=== PATIENT | female | born 1990 | race Caucasian/White ===

== ENCOUNTER 2020-09-30 20:25 | Inpatient (IN) | payer BC ==
[2020-09-30] MEDS: DEXTROSE 5%-LACTATED RINGERS 1,000 ML IV SCH (21:30)
[2020-09-30 22:13] LABS: BASO % 0.5 % (0-2.0); EOS % 1.1 % (0-4.5); HEMATOCRIT 37.7 % (32.4-45.2); LYMPH % 16.9 % (8-40); MCH 29.6 pg (25.7-33.7); MCHC 34.6 g/dl (32.0-36.0); MEAN CELL VOLUME 85.5 fl (80-96); MEAN PLT VOLUME 10.3 fl (7.5-11.1); MONO % 8.5 % (3.8-10.2); PLATELET COUNT 185 K/MM3 (134-434); RBC 4.41 M/mm3 (3.60-5.2); RDW 13.5 % (11.6-15.6)
[2020-09-30 22:23] LABS: INR 0.93 (0.83-1.09); PROTHROMBIN TIME (PATIENT) 11.5 SEC (9.7-13.0)
[2020-09-30 22:26] LABS: ACTIVATED PTT 26.8 SECONDS (25.2-36.5)
[2020-09-30] MEDS ORDERED: BUTORPHANOL TARTRATE 1 MG/ML VIAL IVPUSH PRN (22:27)
[2020-09-30] MEDS ORDERED: PROMETHAZINE HCL 25 MG/1 ML VIAL IVPUSH ONE (22:27)
[2020-09-30 22:37] LABS: PLATELET ESTIMATE ADEQUATE
[2020-09-30 22:41] LABS: POTASSIUM 3.8 mmol/L (3.5-5.1)
[2020-09-30 22:42] LABS: CALCIUM 9.2 mg/dL (8.5-10.1)
[2020-09-30 22:44] LABS: BLOOD UREA NITROGEN 15.4 mg/dL (7-18)
[2020-09-30 22:47] LABS: CREATININE 0.7 mg/dL (0.55-1.3)
[2020-09-30 22:55] VITALS: BMI 26.2
[2020-10-01] MEDS ORDERED: PROMETHAZINE HCL 25 MG/1 ML VIAL ONE (02:53)
[2020-10-01] MEDS ORDERED: BUTORPHANOL TARTRATE 2 MG/ML VIAL ONE (02:53)
[2020-10-01] MEDS ORDERED: FENTANYL/BUPIVACAINE/NS/PF - PCEA - 50 ML DISP.SYRIN EP ONE ×2 (04:58→09:32)
[2020-10-01] MEDS ORDERED: PCA PUMP NR ONE ×3 (04:58→14:32)
[2020-10-01] MEDS ORDERED: BUPIVACAINE HCL/PF 0.25% (2.5MG/ML) 10 ML VIAL ONE (05:06)
[2020-10-01] MEDS: FENTANYL/BUPIVACAINE/NS/PF - PCEA - 50 ML DISP.SYRIN EP SCH (05:25)
[2020-10-01] MEDS ORDERED: NALOXONE HCL 0.4 MG/ML VIAL IVPUSH PRN (05:30)
[2020-10-01] MEDS: DEXTROSE 5%-LACTATED RINGERS 1,000 ML IV SCH (05:52)
[2020-10-01] MEDS ORDERED: OXYTOCIN 30 UNITS in 0.9% NS 30 UNIT/500 ML INFUS.BAG IVPB SCH (08:15)
[2020-10-01] MEDS ORDERED: AMPICILLIN SODIUM 2 GM VIAL ONE (11:38)
[2020-10-01] MEDS ORDERED: OXYTOCIN 20 UNITS in 0.9% NS 20 UNIT/1,000 ML INFUS.BAG IV ONE ×2 (11:39→15:49)
[2020-10-01] MEDS ORDERED: LIDOCAINE HCL 1% PRESERVATIVE FREE - 30ML VIAL ONE (11:39)
[2020-10-01] MEDS ORDERED: AMPICILLIN - 2 GM in SODIUM CHLORIDE 100 ML IVPB ONE (11:43)
[2020-10-01] MEDS ORDERED: ELECTROLYTE-148 SOLN 1,000 ML IV SCH (11:45)
[2020-10-01] MEDS ORDERED: CITRIC ACID/SODIUM CITRATE 30 ML UNIT-DOSE CUP PO ONE (14:14)
[2020-10-01] MEDS ORDERED: LIDO 2%/EPI 1:200000 PRESRVFRE (20 ML SDVIAL) ONE (14:20)
[2020-10-01] MEDS ORDERED: morphine SULFATE/PF 0.5 MG/ML (2cc Syringe - QUVA) ONE ×2 (15:07)
[2020-10-01 15:39] LABS: CORD BASE EXCESS -4.1 mmol/L (0-2); CORD HCO3 22.6 mmHg (20-29); CORD PCO2 47.6 mmHg (30-78); CORD pH 7.295 (7.14-7.44)
[2020-10-01 15:43] LABS: CORD BASE EXCESS -1.9 mmol/L (0-2); CORD HCO3 24.8 mmHg (20-29); CORD PCO2 49.1 mmHg (30-78); CORD pH 7.321 (7.14-7.44)
[2020-10-01] MEDS ORDERED: BENZOCAINE 28 GM HEMORRHOIDAL OINTMENT PR PRN (15:52)
[2020-10-01] MEDS ORDERED: BENZOCAINE 20% 57 GM BOTTLE TP PRN (15:52)
[2020-10-01] MEDS ORDERED: oxyCODONE HCL 5 MG TABLET PO PRN ×2 (15:52)
[2020-10-01] MEDS ORDERED: METHYLERGONOVINE MALEATE 0.2 MG/1 ML AMP IM PRN (15:52)
[2020-10-01] MEDS ORDERED: diphenhydrAMINE HCL 25 MG CAPSULE (FP) PO PRN (15:52)
[2020-10-01] MEDS ORDERED: WITCH HAZEL 50% (TUCKS) 40 PAD/JAR PAD TP PRN (15:52)
[2020-10-01] MEDS ORDERED: OXYTOCIN 20 UNITS in 0.9% NS 20 UNIT/1,000 ML INFUS.BAG IV SCH (16:00)
[2020-10-01] MEDS: IBUPROFEN 800 MG/8 ML IJ IVPB PRN (17:26)
[2020-10-01] MEDS: CEFAZOLIN 1 GM/D5W 1 GM/50 ML BAG IVPB SCH (18:35)
[2020-10-01] MEDS: SIMETHICONE 80 MG TAB.CHEW (FP) PO PRN (21:56)
[2020-10-01] MEDS: ACETAMINOPHEN 325 MG TABLET (FP) PO PRN (21:56)
[2020-10-02] MEDS: CEFAZOLIN 1 GM/D5W 1 GM/50 ML BAG IVPB SCH (01:43)
[2020-10-02 09:23] LABS: BASO % 0.3 % (0-2.0); EOS % 0.2 % (0-4.5); HEMATOCRIT 35.4 % (32.4-45.2); HEMOGLOBIN 11.6 GM/dL (10.7-15.3); LYMPH % 8.6 % (8-40); MCH 28.7 pg (25.7-33.7); MCHC 32.8 g/dl (32.0-36.0); MEAN CELL VOLUME 87.4 fl (80-96); MEAN PLT VOLUME 9.9 fl (7.5-11.1); MONO % 6.3 % (3.8-10.2); NEUT % 84.6 % (42.8-82.8); PLATELET COUNT 174 K/MM3 (134-434); RBC 4.05 M/mm3 (3.60-5.2); WHITE BLOOD COUNT 13.4 K/mm3 (4.0-10.0)
[2020-10-02] MEDS: IBUPROFEN 800 MG/8 ML IJ IVPB PRN (09:54)
[2020-10-02] MEDS: ENOXAPARIN NA (PORCINE) 40 MG/0.4 ML DISP.SYRIN SQ SCH (09:55)
[2020-10-02] MEDS ORDERED: BISACODYL 10 MG SUPP.RECT PR PRN (15:52)
[2020-10-02] MEDS: FENTANYL/BUPIVACAINE/NS/PF - PCEA - 50 ML DISP.SYRIN EP SCH (18:57)
[2020-10-02] MEDS: ACETAMINOPHEN 325 MG TABLET (FP) PO PRN (20:15)
[2020-10-02] MEDS: SIMETHICONE 80 MG TAB.CHEW (FP) PO PRN (20:16)
[2020-10-02] MEDS: DEXTROSE 5%-LACTATED RINGERS 1,000 ML IV SCH (21:35)
[2020-10-03] MEDS: IBUPROFEN 600 MG TABLET (FP) PO PRN ×3 (04:15→18:32)
[2020-10-03] MEDS: SIMETHICONE 80 MG TAB.CHEW (FP) PO PRN ×2 (04:15→22:37)
[2020-10-03] MEDS: ACETAMINOPHEN 325 MG TABLET (FP) PO PRN ×3 (04:15→18:33)
[2020-10-03] MEDS: FENTANYL/BUPIVACAINE/NS/PF - PCEA - 50 ML DISP.SYRIN EP SCH (06:29)
[2020-10-03 07:50] LABS: POC NITRAZINE POS
[2020-10-03] MEDS: ENOXAPARIN NA (PORCINE) 40 MG/0.4 ML DISP.SYRIN SQ SCH (09:48)
[2020-10-03] MEDS ORDERED: SENNOSIDES/DOCUSATE COMBO (SENNA PLUS) TABLET (UD) PO PRN (22:00)
[2020-10-03] MEDS: DEXTROSE 5%-LACTATED RINGERS 1,000 ML IV SCH (22:36)
[2020-10-03 23:34] VITALS: TEMP 97.8
[2020-10-04] MEDS: ACETAMINOPHEN 325 MG TABLET (FP) PO PRN ×2 (03:24→09:14)
[2020-10-04] MEDS: IBUPROFEN 600 MG TABLET (FP) PO PRN ×2 (03:25→09:14)
[2020-10-04] MEDS: SIMETHICONE 80 MG TAB.CHEW (FP) PO PRN ×2 (03:26→09:15)
[2020-10-04 08:59] LABS: BASO % 0.6 % (0-2.0); EOS % 2.4 % (0-4.5); HEMATOCRIT 28.2 % (32.4-45.2); HEMOGLOBIN 9.4 GM/dL (10.7-15.3); LYMPH % 18.1 % (8-40); MCH 28.9 pg (25.7-33.7); MCHC 33.5 g/dl (32.0-36.0); MEAN CELL VOLUME 86.1 fl (80-96); MEAN PLT VOLUME 9.9 fl (7.5-11.1); MONO % 7.1 % (3.8-10.2); NEUT % 71.8 % (42.8-82.8); PLATELET COUNT 199 K/MM3 (134-434); RBC 3.27 M/mm3 (3.60-5.2); RDW 13.5 % (11.6-15.6); WHITE BLOOD COUNT 7.6 K/mm3 (4.0-10.0)
[2020-10-04] MEDS: ENOXAPARIN NA (PORCINE) 40 MG/0.4 ML DISP.SYRIN SQ SCH (09:15)
[2020-10-04 11:41] VITALS: BP 121/68; PULSE 87
== END 2020-10-04 12:15 | disposition home or self-care (01) | DRG 788 ==
LOC: JDEL 20:25 → JLDR 21:20 → J3W 10-01 17:05
PROVIDERS: ADMIT Obstetrics & Gynecology; ATTEND Obstetrics & Gynecology
PROC: 10D00Z1 Extraction of Products of Conception, Low, Open Approach (ICD-10-PCS; principal; 2020-10-01)
DX: O63.1 Prolonged second stage (of labor) (principal); O42.02 Full-term premature rupture of membranes, onset of labor within 24 hours of rupture; O76 Abnormality in fetal heart rate and rhythm complicating labor and delivery; Z3A.37 37 weeks gestation of pregnancy; Z37.0 Single live birth
CPT/HCPCS: 36415; 36600; 80048; 82803; 83986-QW; 85025; 85610; 85730; 86780; 86850; 86900; 86901; 88307-TC; C9803; U0003

== ENCOUNTER 2023-07-17 13:44 | Emergency (ER) | payer OTHER ==
[2023-07-17 14:09] VITALS: BP 130/78; PULSE 88; RESP 16; TEMP 99; BMI 19.3
[2023-07-17] MEDS ORDERED: ACETAMINOPHEN 500 MG TABLET (FP) PO ONE (14:17)
[2023-07-17] MEDS ORDERED: ACETAMINOPHEN 500 MG TABLET (FP) ONE (15:18)
[2023-07-17 15:49] LABS: THROAT:GRP A STREP NOT DETECTED (NOTDETECTED)
== END 2023-07-17 16:36 | disposition home or self-care (01) ==
LOC: FER 13:44
DX: J02.9 Acute pharyngitis, unspecified (principal); R68.84 Jaw pain; R05.9 Cough, unspecified; U07.1 COVID-19
CPT/HCPCS: 0241U-QW; 87651; 99283-25